=== PATIENT | female | born 1940 | race Caucasian/White ===

== ENCOUNTER 2017-10-23 13:47 | Inpatient (IN) | payer MEDICARE, BC, MEDICAID ==
[2017-10-23 15:30] LABS: ADD MAN DIFF? NO
[2017-10-23 15:33] LABS: WHITE BLOOD COUNT 10.7 10^3/ul (4.8-10.8)
[2017-10-23 15:33] LABS: BASOPHIL # 0.1 10^3/ul (0.0-0.1); BASOPHILS % 0.8 % (0.0-2.0); EOSINOPHILS # 0.2 10^3/ul (0.0-0.5); EOSINOPHILS % 2.2 % (0.0-7.0); HEMATOCRIT 44.2 % (37.0-47.0); HEMOGLOBIN 13.6 g/dl (12.0-16.0); LYMPHOCYTES # 2.4 10^3/ul (0.8-2.9); LYMPHOCYTES % 22.8 % (15.0-51.0); MEAN CORPUSCULAR HEMOGLOBIN 25.8 pg (29.0-33.0); MEAN CORPUSCULAR HGB CONC 30.8 g/dl (32.0-37.0); MEAN CORPUSCULAR VOLUME 83.7 fl (82.0-101.0); MEAN PLATELET VOLUME 10.7 fl (7.4-10.4); MONOCYTE # 0.8 10^3/ul (0.3-0.9); MONOCYTES % 7.7 % (0.0-11.0); NEUTROPHIL # 7.1 10^3/ul (1.6-7.5); NEUTROPHILS % 66.3 % (39.0-77.0); PLATELET COUNT 255 10^3/UL (140-415); RED BLOOD COUNT 5.28 10^6/ul (4.20-5.40); RED CELL DISTRIBUTION WIDTH 14.6 % (11.5-14.5)
[2017-10-23 15:52] LABS: ALANINE AMINOTRANSFERASE 22 IU/L (13-69); ALBUMIN 4.1 g/dl (3.3-4.9); ALBUMIN/GLOBULIN RATIO 1.02; ALKALINE PHOSPHATASE 83 IU/L (42-121); ANION GAP 15 (8-16); ASPARTATE AMINO TRANSFERASE 27 IU/L (15-46); BILIRUBIN,INDIRECT 0.3 mg/dl (0-1.1); BILIRUBIN,TOTAL 0.3 mg/dl (0.2-1.3); BLOOD UREA NITROGEN 23 mg/dl (7-20); CARBON DIOXIDE 28 mmol/L (21-31); CHLORIDE 106 mmol/L (97-110); CREATININE 0.79 mg/dl (0.44-1.00); GLUCOSE 120 mg/dl (70-220); POTASSIUM 4.5 mmol/L (3.5-5.1); SODIUM 144 mmol/L (135-144); TOTAL PROTEIN 8.1 g/dl (6.1-8.1)
[2017-10-23 15:53] LABS: ACETAMINOPHEN < 10.0 ug/ml (10.0-30.0); ETHANOL < 10.0 mg/dl; SALICYLATE < 1.0 mg/dl (5.0-30.0)
[2017-10-23 18:37] LABS: ADD UMIC YES; UR ASCORBIC ACID NEGATIVE (NEGATIVE); UR BILIRUBIN (Dip) NEGATIVE (NEGATIVE); UR BLOOD (Dip) 1+ mg/dL (NEGATIVE); UR CLARITY CLEAR (CLEAR); UR COLOR YELLOW (YELLOW); UR GLUCOSE (Dip) NEGATIVE (NEGATIVE); UR KETONES (Dip) NEGATIVE (NEGATIVE); UR LEUKOCYTE ESTERASE (Dip) 3+ Leu/ul (NEGATIVE); UR NITRITE (Dip) NEGATIVE (NEGATIVE); UR RBC 3 /HPF (0-5); UR SPECIFIC GRAVITY (Dip) 1.014 (1.003-1.030); UR TOTAL PROTEIN (Dip) NEGATIVE (NEGATIVE); UR UROBILINOGEN (Dip) NEGATIVE (NEGATIVE); UR WBC 16 /HPF (0-5)
[2017-10-23 19:10] LABS: AMPHETAMINE/METHAMPHETAMINE Negative (NEGATIVE); BARBITURATES Negative (NEGATIVE); BENZODIAZEPINES Negative (NEGATIVE); CANNABINOIDS Negative (NEGATIVE); COCAINE Negative (NEGATIVE); OPIATES Negative (NEGATIVE)
[2017-10-23] MEDS: CEFTRIAXONE 1 GM/50 ML (PMX) 50 ML IVPB (19:23)
[2017-10-23] MEDS ORDERED: ONDANSETRON 4 MG INJ IV (19:30)
[2017-10-23] MEDS ORDERED: ACETAMINOPHEN 325 MG TAB PO ×2 (19:30→22:00)
[2017-10-23 19:53] LABS: INR 0.93; PROTIME 12.5 Sec (11.9-14.9)
[2017-10-23 19:54] LABS: PARTIAL THROMBOPLASTIN TIME 27.9 Sec (25.0-35.0)
[2017-10-23 20:02] LABS: TROPONIN-I 0.029 ng/ml (0.000-0.120)
[2017-10-23 20:06] LABS: FREE THYROXINE INDEX (Calc) 2.52 ug/ml (0.65-3.89); T3 UPTAKE 33.1 % (23.5-40.5); T4 (THYROXINE) 7.6 ug/dl (5.5-11.0)
[2017-10-23] MEDS ORDERED: GLUCOSE GEL 15 GRAM TUBE PO ×2 (22:00)
[2017-10-23] MEDS ORDERED: GLUCOSE GEL 15 GRAM TUBE BUCCAL (22:00)
[2017-10-23] MEDS ORDERED: GLUCAGON 1 MG INJ IM (22:00)
[2017-10-23] MEDS ORDERED: DEXTROSE 50% 50 ML SYRINGE IV ×2 (22:00)
[2017-10-23] MEDS: INSULIN ASPART [NOVOLOG] 3 ML PEN SC (22:14)
[2017-10-24] MEDS: ACCU-CHEK XX (02:00)
[2017-10-24 05:59] LABS: ADD MAN DIFF? NO
[2017-10-24 06:01] LABS: BASOPHIL # 0.1 10^3/ul (0.0-0.1); BASOPHILS % 0.8 % (0.0-2.0); EOSINOPHILS # 0.3 10^3/ul (0.0-0.5); EOSINOPHILS % 2.5 % (0.0-7.0); HEMOGLOBIN 13.1 g/dl (12.0-16.0); LYMPHOCYTES # 2.5 10^3/ul (0.8-2.9); LYMPHOCYTES % 24.7 % (15.0-51.0); MEAN CORPUSCULAR HEMOGLOBIN 25.4 pg (29.0-33.0); MEAN CORPUSCULAR HGB CONC 31.2 g/dl (32.0-37.0); MEAN CORPUSCULAR VOLUME 81.4 fl (82.0-101.0); MEAN PLATELET VOLUME 11.1 fl (7.4-10.4); MONOCYTE # 0.8 10^3/ul (0.3-0.9); MONOCYTES % 7.6 % (0.0-11.0); NEUTROPHIL # 6.5 10^3/ul (1.6-7.5); NEUTROPHILS % 64.1 % (39.0-77.0); PLATELET COUNT 265 10^3/UL (140-415); RED BLOOD COUNT 5.16 10^6/ul (4.20-5.40); RED CELL DISTRIBUTION WIDTH 14.5 % (11.5-14.5)
[2017-10-24 06:01] LABS: WHITE BLOOD COUNT 10.1 10^3/ul (4.8-10.8)
[2017-10-24 06:27] LABS: ALANINE AMINOTRANSFERASE 31 IU/L (13-69); ALBUMIN 3.7 g/dl (3.3-4.9); ALBUMIN/GLOBULIN RATIO 1.02; ALKALINE PHOSPHATASE 78 IU/L (42-121); ANION GAP 13 (8-16); ASPARTATE AMINO TRANSFERASE 24 IU/L (15-46); BILIRUBIN,INDIRECT 0.3 mg/dl (0-1.1); BILIRUBIN,TOTAL 0.3 mg/dl (0.2-1.3); BLOOD UREA NITROGEN 19 mg/dl (7-20); CALCIUM 9.9 mg/dl (8.4-10.2); CARBON DIOXIDE 27 mmol/L (21-31); CHLORIDE 109 mmol/L (97-110); CHOL/HDL RATIO 6.1 RATIO; CHOLESTEROL 238 mg/dl (100-200); CREATININE 0.74 mg/dl (0.44-1.00); GLUCOSE 118 mg/dl (70-220); HDL CHOLESTEROL 39 mg/dl (33-92); LDL CHOLESTEROL,CALCULATED 152 mg/dl; POTASSIUM 4.4 mmol/L (3.5-5.1); SODIUM 145 mmol/L (135-144); TOTAL PROTEIN 7.3 g/dl (6.1-8.1); TRIGLYCERIDES 237 mg/dl (0-149)
[2017-10-24] MEDS: INSULIN ASPART [NOVOLOG] 3 ML PEN SC ×4 (08:15→21:00)
[2017-10-24] MEDS: ASPIRIN (EC) 81 MG TAB PO (08:22)
[2017-10-24] MEDS: METOPROLOL (XL) 25 MG TAB PO (08:23)
[2017-10-24] MEDS: ENOXAPARIN 40 MG/0.4 ML SYG SC (08:24)
[2017-10-24 09:54] LABS: HEMOGLOBIN A1C 6.3 % (0-5.9)
[2017-10-24] MEDS: CITALOPRAM 20 MG TAB NGT (15:00)
[2017-10-24] MEDS: CEFTRIAXONE 2 GM/50 ML (PMX) 50 ML IVPB (18:54)
[2017-10-25] MEDS: ACCU-CHEK XX (02:00)
[2017-10-25 06:24] LABS: ADD MAN DIFF? NO
[2017-10-25 06:35] LABS: BASOPHIL # 0.1 10^3/ul (0.0-0.1); BASOPHILS % 0.6 % (0.0-2.0); EOSINOPHILS # 0.2 10^3/ul (0.0-0.5); EOSINOPHILS % 1.7 % (0.0-7.0); HEMATOCRIT 42.6 % (37.0-47.0); HEMOGLOBIN 13.4 g/dl (12.0-16.0); LYMPHOCYTES # 2.2 10^3/ul (0.8-2.9); MEAN CORPUSCULAR HEMOGLOBIN 25.6 pg (29.0-33.0); MEAN CORPUSCULAR HGB CONC 31.5 g/dl (32.0-37.0); MEAN CORPUSCULAR VOLUME 81.3 fl (82.0-101.0); MONOCYTE # 0.7 10^3/ul (0.3-0.9); MONOCYTES % 6.5 % (0.0-11.0); NEUTROPHIL # 7.8 10^3/ul (1.6-7.5); NEUTROPHILS % 70.9 % (39.0-77.0); PLATELET COUNT 284 10^3/UL (140-415); RED BLOOD COUNT 5.24 10^6/ul (4.20-5.40); RED CELL DISTRIBUTION WIDTH 14.5 % (11.5-14.5)
[2017-10-25 06:48] LABS: ANION GAP 14 (8-16); BLOOD UREA NITROGEN 16 mg/dl (7-20); CALCIUM 9.5 mg/dl (8.4-10.2); CARBON DIOXIDE 27 mmol/L (21-31); CHLORIDE 107 mmol/L (97-110); CREATININE 0.77 mg/dl (0.44-1.00); GLUCOSE 106 mg/dl (70-220); POTASSIUM 4.4 mmol/L (3.5-5.1); SODIUM 144 mmol/L (135-144)
[2017-10-25] MEDS: INSULIN ASPART [NOVOLOG] 3 ML PEN SC ×4 (08:12→20:36)
[2017-10-25] MEDS: ASPIRIN (EC) 81 MG TAB PO (09:08)
[2017-10-25] MEDS: CITALOPRAM 20 MG TAB NGT (09:08)
[2017-10-25] MEDS: METOPROLOL (XL) 25 MG TAB PO (09:08)
[2017-10-25] MEDS: ENOXAPARIN 40 MG/0.4 ML SYG SC (09:09)
[2017-10-25 12:22] LABS: CHOL/HDL RATIO 5.9 RATIO; HDL CHOLESTEROL 41 mg/dl (33-92); LDL CHOLESTEROL,CALCULATED 160 mg/dl; TRIGLYCERIDES 214 mg/dl (0-149)
[2017-10-25 12:22] LABS: CHOLESTEROL 244 mg/dl (100-200)
[2017-10-25 14:14] LABS: B-TYPE NATRIURETIC PEPTIDE 1980 PG/ML (0-450)
[2017-10-25 16:52] LABS: ADD UMIC YES; UR ASCORBIC ACID NEGATIVE (NEGATIVE); UR BACTERIA MODERATE /HPF (NONE SEEN); UR BILIRUBIN (Dip) NEGATIVE (NEGATIVE); UR BLOOD (Dip) 2+ mg/dL (NEGATIVE); UR CLARITY CLOUDY (CLEAR); UR COLOR YELLOW (YELLOW); UR GLUCOSE (Dip) NEGATIVE (NEGATIVE); UR KETONES (Dip) NEGATIVE (NEGATIVE); UR LEUKOCYTE ESTERASE (Dip) 3+ Leu/ul (NEGATIVE); UR NITRITE (Dip) NEGATIVE (NEGATIVE); UR RBC 42 /HPF (0-5); UR SPECIFIC GRAVITY (Dip) 1.013 (1.003-1.030); UR SQUAMOUS EPITHELIAL CELL FEW /HPF (FEW); UR TOTAL PROTEIN (Dip) NEGATIVE (NEGATIVE); UR UROBILINOGEN (Dip) NEGATIVE (NEGATIVE); UR WBC > 182 /HPF (0-5)
[2017-10-25] MEDS: CEFTRIAXONE 2 GM/50 ML (PMX) 50 ML IVPB (17:07)
[2017-10-25] MEDS: ATORVASTATIN 40 MG TAB PO (20:32)
[2017-10-26] MEDS: ACCU-CHEK XX (02:00)
[2017-10-26 06:08] LABS: ADD MAN DIFF? NO
[2017-10-26 06:10] LABS: BASOPHIL # 0.1 10^3/ul (0.0-0.1); BASOPHILS % 1.1 % (0.0-2.0); EOSINOPHILS # 0.2 10^3/ul (0.0-0.5); EOSINOPHILS % 2.4 % (0.0-7.0); HEMATOCRIT 41.7 % (37.0-47.0); LYMPHOCYTES # 2.5 10^3/ul (0.8-2.9); LYMPHOCYTES % 26.7 % (15.0-51.0); MEAN CORPUSCULAR HEMOGLOBIN 25.3 pg (29.0-33.0); MEAN CORPUSCULAR HGB CONC 31.2 g/dl (32.0-37.0); MEAN CORPUSCULAR VOLUME 81.3 fl (82.0-101.0); MEAN PLATELET VOLUME 11.2 fl (7.4-10.4); MONOCYTE # 0.8 10^3/ul (0.3-0.9); MONOCYTES % 8.3 % (0.0-11.0); NEUTROPHIL # 5.7 10^3/ul (1.6-7.5); NEUTROPHILS % 61.3 % (39.0-77.0); PLATELET COUNT 257 10^3/UL (140-415); RED BLOOD COUNT 5.13 10^6/ul (4.20-5.40); RED CELL DISTRIBUTION WIDTH 14.4 % (11.5-14.5)
[2017-10-26 06:10] LABS: WHITE BLOOD COUNT 9.3 10^3/ul (4.8-10.8)
[2017-10-26 06:30] LABS: ANION GAP 10 (8-16); BLOOD UREA NITROGEN 19 mg/dl (7-20); CALCIUM 9.6 mg/dl (8.4-10.2); CARBON DIOXIDE 29 mmol/L (21-31); CHLORIDE 109 mmol/L (97-110); CREATININE 0.73 mg/dl (0.44-1.00); GLUCOSE 93 mg/dl (70-220); POTASSIUM 4.6 mmol/L (3.5-5.1); SODIUM 143 mmol/L (135-144)
[2017-10-26 06:43] LABS: TROPONIN-I 0.039 ng/ml (0.000-0.120)
[2017-10-26] MEDS: INSULIN ASPART [NOVOLOG] 3 ML PEN SC ×3 (08:15→17:56)
[2017-10-26] MEDS: ENOXAPARIN 40 MG/0.4 ML SYG SC (08:28)
[2017-10-26] MEDS: METOPROLOL (XL) 25 MG TAB PO (08:29)
[2017-10-26] MEDS: CITALOPRAM 20 MG TAB NGT (08:29)
[2017-10-26] MEDS: ASPIRIN (EC) 81 MG TAB PO (08:29)
[2017-10-26 15:54] LABS: TROPONIN-I 0.025 ng/ml (0.000-0.120)
[2017-10-26] MEDS: CEFTRIAXONE 2 GM/50 ML (PMX) 50 ML IVPB (17:22)
[2017-10-27] MEDS ORDERED: BENAZEPRIL 10 MG TAB PO (09:00)
== END 2017-10-26 20:20 | DRG 70 ==
LOC: E/R 13:47 → MS2 19:30
DX: G93.89 Other specified disorders of brain (principal); G93.40 Encephalopathy, unspecified; G91.2 (Idiopathic) normal pressure hydrocephalus; N39.0 Urinary tract infection, site not specified; G30.9 Alzheimer's disease, unspecified; F02.80 Dementia in other diseases classified elsewhere, unspecified severity, without behavioral disturbance, psychotic disturbance, mood disturbance, and anxiety; E11.9 Type 2 diabetes mellitus without complications; I10 Essential (primary) hypertension; E78.5 Hyperlipidemia, unspecified; F32.9 Major depressive disorder, single episode, unspecified; G31.84 Mild cognitive impairment of uncertain or unknown etiology; I35.0 Nonrheumatic aortic (valve) stenosis; Z66 Do not resuscitate
CPT/HCPCS: 70450; 70551; 71045; 80048; 80053; 80061; 80307; 81001; 82962; 83036; 83880; 84436; 84443; 84479; 84484; 85025; 85610; 85730; 87086; 93005; 93306; 96374; 99217; 99285-25

== ENCOUNTER 2017-12-05 23:37 | Inpatient (IN) | payer MEDICARE, BC, MEDICAID ==
[2017-12-06 00:23] LABS: ADD MAN DIFF? NO
[2017-12-06 00:26] LABS: URINE BLOOD (Dip) POC 2+ (NEGATIVE); URINE GLUCOSE (Dip) POC Negative (NEGATIVE); URINE KETONES (Dip) POC Negative (NEGATIVE); URINE LEUKOCYTE EST (Dip) POC 3+ (NEGATIVE); URINE NITRITE (Dip) POC Positive (NEGATIVE); URINE TOTAL PROTEIN POC 1+ (NEGATIVE)
[2017-12-06 00:27] LABS: BASOPHIL # 0.1 10^3/ul (0.0-0.1); BASOPHILS % 0.5 % (0.0-2.0); EOSINOPHILS # 0.2 10^3/ul (0.0-0.5); EOSINOPHILS % 2.1 % (0.0-7.0); HEMATOCRIT 40.7 % (37.0-47.0); HEMOGLOBIN 12.8 g/dl (12.0-16.0); LYMPHOCYTES # 2.3 10^3/ul (0.8-2.9); LYMPHOCYTES % 19.7 % (15.0-51.0); MEAN CORPUSCULAR HEMOGLOBIN 25.9 pg (29.0-33.0); MEAN CORPUSCULAR HGB CONC 31.4 g/dl (32.0-37.0); MEAN CORPUSCULAR VOLUME 82.4 fl (82.0-101.0); MEAN PLATELET VOLUME 11.5 fl (7.4-10.4); MONOCYTE # 0.8 10^3/ul (0.3-0.9); MONOCYTES % 6.9 % (0.0-11.0); NEUTROPHIL # 8.1 10^3/ul (1.6-7.5); NEUTROPHILS % 70.5 % (39.0-77.0); PLATELET COUNT 271 10^3/UL (140-415); RED BLOOD COUNT 4.94 10^6/ul (4.20-5.40); RED CELL DISTRIBUTION WIDTH 14.6 % (11.5-14.5)
[2017-12-06 00:27] LABS: WHITE BLOOD COUNT 11.5 10^3/ul (4.8-10.8)
[2017-12-06 00:47] LABS: ALANINE AMINOTRANSFERASE 33 IU/L (13-69); ALBUMIN/GLOBULIN RATIO 1.17; ALKALINE PHOSPHATASE 76 IU/L (42-121); ANION GAP 10 (8-16); ASPARTATE AMINO TRANSFERASE 32 IU/L (15-46); BILIRUBIN,INDIRECT 0.3 mg/dl (0-1.1); BILIRUBIN,TOTAL 0.3 mg/dl (0.2-1.3); BLOOD UREA NITROGEN 28 mg/dl (7-20); CALCIUM 9.6 mg/dl (8.4-10.2); CARBON DIOXIDE 27 mmol/L (21-31); CHLORIDE 111 mmol/L (97-110); GLUCOSE 125 mg/dl (70-220); LIPASE 519 U/L (23-300); POTASSIUM 4.5 mmol/L (3.5-5.1); SODIUM 143 mmol/L (135-144); TOTAL PROTEIN 7.4 g/dl (6.1-8.1)
[2017-12-06] MEDS: SOD CHLORIDE 0.9% 500 ML IV (04:36)
[2017-12-06] MEDS: PIPER-TAZO 3.375 GM IV (PMX) 100 ML IVPB (04:36)
[2017-12-06] MEDS ORDERED: ONDANSETRON 4 MG INJ IV (12:00)
[2017-12-06] MEDS ORDERED: GLUCOSE GEL 15 GRAM TUBE BUCCAL (12:30)
[2017-12-06] MEDS ORDERED: DEXTROSE 50% 50 ML SYRINGE IV ×2 (12:30)
[2017-12-06] MEDS ORDERED: GLUCAGON 1 MG INJ IM (12:30)
[2017-12-06] MEDS: PANTOPRAZOLE 40 MG INJ IV (12:30)
[2017-12-06] MEDS ORDERED: GLUCOSE GEL 15 GRAM TUBE PO ×2 (12:30)
[2017-12-06] MEDS ORDERED: METOCLOPRAMIDE 10 MG INJ IV (12:30)
[2017-12-06] MEDS: INSULIN ASPART [NOVOLOG] 3 ML PEN SC ×3 (12:50→21:00)
[2017-12-06] MEDS: CEFTRIAXONE 1 GM/50 ML (PMX) 50 ML IVPB (13:30)
[2017-12-06 14:56] LABS: LIPASE 374 U/L (23-300)
[2017-12-06 14:56] LABS: ALANINE AMINOTRANSFERASE 31 IU/L (13-69); ALBUMIN 3.5 g/dl (3.3-4.9); ALKALINE PHOSPHATASE 67 IU/L (42-121); ASPARTATE AMINO TRANSFERASE 35 IU/L (15-46); BILIRUBIN,INDIRECT 0.3 mg/dl (0-1.1); BILIRUBIN,TOTAL 0.3 mg/dl (0.2-1.3); TOTAL PROTEIN 6.8 g/dl (6.1-8.1)
[2017-12-06] MEDS: SOD CHLORIDE 0.9% 1,000 ML IV (15:59)
[2017-12-06] MEDS ORDERED: ACETAMINOPHEN 325 MG TAB PO (17:00)
[2017-12-06] MEDS: ATORVASTATIN 40 MG TAB PO (20:23)
[2017-12-06] MEDS: DOCUSATE SODIUM 100 MG CAP PO (20:23)
[2017-12-06] MEDS: MEMANTINE 10 MG TAB PO (20:23)
[2017-12-07] MEDS: PANTOPRAZOLE 40 MG INJ IV (05:47)
[2017-12-07 05:50] LABS: ADD MAN DIFF? NO; BASOPHIL # 0.1 10^3/ul (0.0-0.1); BASOPHILS % 0.9 % (0.0-2.0); EOSINOPHILS # 0.2 10^3/ul (0.0-0.5); EOSINOPHILS % 2.2 % (0.0-7.0); HEMATOCRIT 39.8 % (37.0-47.0); HEMOGLOBIN 12.2 g/dl (12.0-16.0); LYMPHOCYTES # 2.4 10^3/ul (0.8-2.9); LYMPHOCYTES % 30.4 % (15.0-51.0); MEAN CORPUSCULAR HEMOGLOBIN 25.6 pg (29.0-33.0); MEAN CORPUSCULAR HGB CONC 30.7 g/dl (32.0-37.0); MEAN CORPUSCULAR VOLUME 83.6 fl (82.0-101.0); MEAN PLATELET VOLUME 11.4 fl (7.4-10.4); MONOCYTE # 0.7 10^3/ul (0.3-0.9); MONOCYTES % 8.9 % (0.0-11.0); NEUTROPHIL # 4.5 10^3/ul (1.6-7.5); NEUTROPHILS % 57.3 % (39.0-77.0); PLATELET COUNT 239 10^3/UL (140-415); RED BLOOD COUNT 4.76 10^6/ul (4.20-5.40); RED CELL DISTRIBUTION WIDTH 14.7 % (11.5-14.5)
[2017-12-07 05:50] LABS: WHITE BLOOD COUNT 7.8 10^3/ul (4.8-10.8)
[2017-12-07 06:32] LABS: ANION GAP 7 (8-16); BLOOD UREA NITROGEN 21 mg/dl (7-20); CARBON DIOXIDE 27 mmol/L (21-31); CHLORIDE 114 mmol/L (97-110); CREATININE 0.82 mg/dl (0.44-1.00); GLUCOSE 84 mg/dl (70-220); POTASSIUM 4.2 mmol/L (3.5-5.1); SODIUM 144 mmol/L (135-144)
[2017-12-07] MEDS: INSULIN ASPART [NOVOLOG] 3 ML PEN SC ×4 (08:10→20:58)
[2017-12-07 08:15] LABS: HEMOGLOBIN A1C 6.1 % (0-5.9)
[2017-12-07] MEDS: SOD CHLORIDE 0.9% 1,000 ML IV (09:05)
[2017-12-07] MEDS: CALCIUM CARBONATE 1.25 GM TAB PO (09:58)
[2017-12-07] MEDS: MEMANTINE 10 MG TAB PO ×2 (09:58→20:53)
[2017-12-07] MEDS: DOCUSATE SODIUM 100 MG CAP PO ×2 (09:58→20:53)
[2017-12-07] MEDS: CITALOPRAM 20 MG TAB PO (09:58)
[2017-12-07] MEDS: BENAZEPRIL 10 MG TAB PO ×2 (09:59→21:57)
[2017-12-07] MEDS: METOPROLOL 25 MG TAB PO (10:00)
[2017-12-07] MEDS: CEFTRIAXONE 1 GM/50 ML (PMX) 50 ML IVPB (12:24)
[2017-12-07] MEDS: ATORVASTATIN 40 MG TAB PO (20:53)
[2017-12-08] MEDS: SOD CHLORIDE 0.9% 1,000 ML IV ×2 (02:22→17:45)
[2017-12-08] MEDS: PANTOPRAZOLE 40 MG INJ IV (05:17)
[2017-12-08 05:46] LABS: ADD MAN DIFF? NO
[2017-12-08 06:08] LABS: WHITE BLOOD COUNT 8.4 10^3/ul (4.8-10.8)
[2017-12-08 06:08] LABS: BASOPHIL # 0.1 10^3/ul (0.0-0.1); BASOPHILS % 0.7 % (0.0-2.0); EOSINOPHILS # 0.2 10^3/ul (0.0-0.5); EOSINOPHILS % 2.4 % (0.0-7.0); HEMATOCRIT 35.4 % (37.0-47.0); HEMOGLOBIN 11.1 g/dl (12.0-16.0); LYMPHOCYTES # 2.7 10^3/ul (0.8-2.9); LYMPHOCYTES % 32.8 % (15.0-51.0); MEAN CORPUSCULAR HEMOGLOBIN 25.9 pg (29.0-33.0); MEAN CORPUSCULAR HGB CONC 31.4 g/dl (32.0-37.0); MEAN CORPUSCULAR VOLUME 82.7 fl (82.0-101.0); MEAN PLATELET VOLUME 11.4 fl (7.4-10.4); MONOCYTE # 0.7 10^3/ul (0.3-0.9); MONOCYTES % 8.7 % (0.0-11.0); NEUTROPHIL # 4.6 10^3/ul (1.6-7.5); NEUTROPHILS % 55.2 % (39.0-77.0); PLATELET COUNT 222 10^3/UL (140-415); RED BLOOD COUNT 4.28 10^6/ul (4.20-5.40); RED CELL DISTRIBUTION WIDTH 14.5 % (11.5-14.5)
[2017-12-08 06:45] LABS: ANION GAP 11 (8-16); BLOOD UREA NITROGEN 13 mg/dl (7-20); CALCIUM 8.5 mg/dl (8.4-10.2); CARBON DIOXIDE 24 mmol/L (21-31); CHLORIDE 111 mmol/L (97-110); CREATININE 0.73 mg/dl (0.44-1.00); GLUCOSE 85 mg/dl (70-220); POTASSIUM 3.7 mmol/L (3.5-5.1); SODIUM 142 mmol/L (135-144)
[2017-12-08] MEDS: INSULIN ASPART [NOVOLOG] 3 ML PEN SC ×4 (08:00→20:21)
[2017-12-08] MEDS: DOCUSATE SODIUM 100 MG CAP PO ×2 (08:11→20:20)
[2017-12-08] MEDS: CITALOPRAM 20 MG TAB PO (08:12)
[2017-12-08] MEDS: BENAZEPRIL 10 MG TAB PO ×2 (08:12→20:21)
[2017-12-08] MEDS: MEMANTINE 10 MG TAB PO ×2 (08:12→20:20)
[2017-12-08] MEDS: CALCIUM CARBONATE 1.25 GM TAB PO (08:12)
[2017-12-08] MEDS: METOPROLOL 25 MG TAB PO (08:13)
[2017-12-08] MEDS: CEFTRIAXONE 1 GM/50 ML (PMX) 50 ML IVPB (12:20)
[2017-12-08] MEDS: ATORVASTATIN 40 MG TAB PO (20:20)
[2017-12-08] MEDS: hydrALAzine 20 MG INJ IV (22:38)
[2017-12-09] MEDS: PANTOPRAZOLE 40 MG INJ IV (05:29)
[2017-12-09] MEDS: hydrALAzine 20 MG INJ IV (05:33)
[2017-12-09] MEDS: INSULIN ASPART [NOVOLOG] 3 ML PEN SC ×4 (08:00→21:00)
[2017-12-09] MEDS: DOCUSATE SODIUM 100 MG CAP PO (09:00)
[2017-12-09] MEDS: SOD CHLORIDE 0.9% 1,000 ML IV ×2 (09:18→23:20)
[2017-12-09] MEDS: BENAZEPRIL 20 MG TAB PO ×2 (09:23→20:50)
[2017-12-09] MEDS: CITALOPRAM 20 MG TAB PO (09:24)
[2017-12-09] MEDS: ASPIRIN 81 MG TAB PO (09:24)
[2017-12-09] MEDS: MEMANTINE 10 MG TAB PO ×2 (09:24→20:49)
[2017-12-09] MEDS: METOPROLOL 25 MG TAB PO (09:24)
[2017-12-09] MEDS: CALCIUM CARBONATE 1.25 GM TAB PO (09:24)
[2017-12-09] MEDS: CEFTRIAXONE 1 GM/50 ML (PMX) 50 ML IVPB (12:04)
[2017-12-09] MEDS: SENNA TAB PO ×2 (12:05→20:49)
[2017-12-09] MEDS: ATORVASTATIN 40 MG TAB PO (20:49)
[2017-12-10] MEDS: SOD CHLORIDE 0.9% 1,000 ML IV ×2 (02:55→20:58)
[2017-12-10] MEDS: hydrALAzine 20 MG INJ IV (03:47)
[2017-12-10] MEDS: PANTOPRAZOLE 40 MG INJ IV (05:05)
[2017-12-10] MEDS: INSULIN ASPART [NOVOLOG] 3 ML PEN SC ×4 (07:58→21:00)
[2017-12-10] MEDS: SENNA TAB PO ×2 (09:04→20:48)
[2017-12-10] MEDS: CALCIUM CARBONATE 1.25 GM TAB PO (09:05)
[2017-12-10] MEDS: ASPIRIN 81 MG TAB PO (09:05)
[2017-12-10] MEDS: MEMANTINE 10 MG TAB PO ×2 (09:05→20:48)
[2017-12-10] MEDS: BENAZEPRIL 20 MG TAB PO ×2 (09:05→20:49)
[2017-12-10] MEDS: CITALOPRAM 20 MG TAB PO (09:05)
[2017-12-10] MEDS: METOPROLOL 25 MG TAB PO ×2 (09:06→20:48)
[2017-12-10] MEDS: CEFTRIAXONE 1 GM/50 ML (PMX) 50 ML IVPB (12:21)
[2017-12-10] MEDS: ATORVASTATIN 40 MG TAB PO (20:48)
[2017-12-11] MEDS: PANTOPRAZOLE 40 MG INJ IV ×2 (06:22→17:16)
[2017-12-11] MEDS: INSULIN ASPART [NOVOLOG] 3 ML PEN SC ×4 (07:51→20:16)
[2017-12-11] MEDS: MEMANTINE 10 MG TAB PO ×3 (08:56→20:05)
[2017-12-11] MEDS: ASPIRIN 81 MG TAB PO ×2 (08:56→09:00)
[2017-12-11] MEDS: CALCIUM CARBONATE 1.25 GM TAB PO ×2 (08:56→09:00)
[2017-12-11] MEDS: CITALOPRAM 20 MG TAB PO ×2 (08:57→09:00)
[2017-12-11] MEDS: SENNA TAB PO ×2 (08:57→09:00)
[2017-12-11] MEDS: BENAZEPRIL 20 MG TAB PO ×3 (09:00→20:07)
[2017-12-11] MEDS: METOPROLOL 25 MG TAB PO ×3 (09:00→20:06)
[2017-12-11] MEDS: hydrALAzine 20 MG INJ IV (09:10)
[2017-12-11 11:15] LABS: ADD MAN DIFF? NO
[2017-12-11 11:24] LABS: BASOPHIL # 0.1 10^3/ul (0.0-0.1); BASOPHILS % 0.6 % (0.0-2.0); EOSINOPHILS # 0.1 10^3/ul (0.0-0.5); EOSINOPHILS % 1.2 % (0.0-7.0); HEMATOCRIT 45.4 % (37.0-47.0); HEMOGLOBIN 14.3 g/dl (12.0-16.0); LYMPHOCYTES # 1.8 10^3/ul (0.8-2.9); MEAN CORPUSCULAR HEMOGLOBIN 25.9 pg (29.0-33.0); MEAN CORPUSCULAR HGB CONC 31.5 g/dl (32.0-37.0); MEAN CORPUSCULAR VOLUME 82.1 fl (82.0-101.0); MEAN PLATELET VOLUME 10.6 fl (7.4-10.4); MONOCYTE # 0.8 10^3/ul (0.3-0.9); MONOCYTES % 7.4 % (0.0-11.0); NEUTROPHIL # 8.4 10^3/ul (1.6-7.5); NEUTROPHILS % 74.4 % (39.0-77.0); PLATELET COUNT 236 10^3/UL (140-415); RED BLOOD COUNT 5.53 10^6/ul (4.20-5.40); RED CELL DISTRIBUTION WIDTH 14.8 % (11.5-14.5)
[2017-12-11 11:24] LABS: WHITE BLOOD COUNT 11.3 10^3/ul (4.8-10.8)
[2017-12-11] MEDS: METOCLOPRAMIDE 10 MG INJ IV ×2 (11:35→17:17)
[2017-12-11] MEDS: LUBIPROSTONE 24 MCG CAP PO ×2 (11:35→20:07)
[2017-12-11 11:52] LABS: LIPASE 36 U/L (23-300)
[2017-12-11 11:52] LABS: AMYLASE 39 U/L (11-123)
[2017-12-11 11:55] LABS: TRIGLYCERIDES 128 mg/dl (0-149)
[2017-12-11 11:56] LABS: ALANINE AMINOTRANSFERASE 30 IU/L (13-69); ALBUMIN 3.8 g/dl (3.3-4.9); ALBUMIN/GLOBULIN RATIO 1.18; ALKALINE PHOSPHATASE 80 IU/L (42-121); ANION GAP 10 (8-16); ASPARTATE AMINO TRANSFERASE 53 IU/L (15-46); BILIRUBIN,INDIRECT 0.6 mg/dl (0-1.1); BILIRUBIN,TOTAL 0.6 mg/dl (0.2-1.3); BLOOD UREA NITROGEN 8 mg/dl (7-20); CARBON DIOXIDE 21 mmol/L (21-31); CHLORIDE 114 mmol/L (97-110); CREATININE 0.68 mg/dl (0.44-1.00); GLUCOSE 90 mg/dl (70-220); POTASSIUM 3.4 mmol/L (3.5-5.1); SODIUM 142 mmol/L (135-144)
[2017-12-11] MEDS: SOD CHLORIDE 0.9% 1,000 ML IV (16:12)
[2017-12-11] MEDS: POTASSIUM CHLORIDE (SR) 20 MEQ TAB PO (17:17)
[2017-12-11] MEDS: ATORVASTATIN 40 MG TAB PO (20:20)
[2017-12-12] MEDS: METOCLOPRAMIDE 10 MG INJ IV ×4 (00:15→17:37)
[2017-12-12] MEDS: hydrALAzine 20 MG INJ IV (02:56)
[2017-12-12] MEDS: PANTOPRAZOLE 40 MG INJ IV ×3 (05:30→17:35)
[2017-12-12 05:39] LABS: ADD MAN DIFF? NO
[2017-12-12 05:48] LABS: BASOPHIL # 0.1 10^3/ul (0.0-0.1); BASOPHILS % 0.8 % (0.0-2.0); EOSINOPHILS # 0.2 10^3/ul (0.0-0.5); EOSINOPHILS % 2.3 % (0.0-7.0); HEMATOCRIT 40.3 % (37.0-47.0); HEMOGLOBIN 12.9 g/dl (12.0-16.0); LYMPHOCYTES # 2.2 10^3/ul (0.8-2.9); LYMPHOCYTES % 20.7 % (15.0-51.0); MEAN CORPUSCULAR HEMOGLOBIN 26.2 pg (29.0-33.0); MEAN CORPUSCULAR VOLUME 81.9 fl (82.0-101.0); MEAN PLATELET VOLUME 11.7 fl (7.4-10.4); MONOCYTE # 0.9 10^3/ul (0.3-0.9); MONOCYTES % 8.9 % (0.0-11.0); NEUTROPHIL # 7.1 10^3/ul (1.6-7.5); PLATELET COUNT 274 10^3/UL (140-415); RED BLOOD COUNT 4.92 10^6/ul (4.20-5.40)
[2017-12-12 05:48] LABS: WHITE BLOOD COUNT 10.6 10^3/ul (4.8-10.8)
[2017-12-12 06:15] LABS: ALANINE AMINOTRANSFERASE 36 IU/L (13-69); ALBUMIN 3.3 g/dl (3.3-4.9); ALBUMIN/GLOBULIN RATIO 1.03; ALKALINE PHOSPHATASE 60 IU/L (42-121); ANION GAP 11 (8-16); ASPARTATE AMINO TRANSFERASE 40 IU/L (15-46); BILIRUBIN,INDIRECT 0.7 mg/dl (0-1.1); BILIRUBIN,TOTAL 0.7 mg/dl (0.2-1.3); BLOOD UREA NITROGEN 9 mg/dl (7-20); CALCIUM 8.8 mg/dl (8.4-10.2); CARBON DIOXIDE 21 mmol/L (21-31); CHLORIDE 112 mmol/L (97-110); CREATININE 0.74 mg/dl (0.44-1.00); GLUCOSE 91 mg/dl (70-220); POTASSIUM 3.7 mmol/L (3.5-5.1); SODIUM 140 mmol/L (135-144); TOTAL PROTEIN 6.5 g/dl (6.1-8.1)
[2017-12-12] MEDS: INSULIN ASPART [NOVOLOG] 3 ML PEN SC ×4 (08:00→20:22)
[2017-12-12] MEDS: CALCIUM CARBONATE 1.25 GM TAB PO (09:54)
[2017-12-12] MEDS: CITALOPRAM 20 MG TAB PO (09:54)
[2017-12-12] MEDS: MEMANTINE 10 MG TAB PO ×2 (09:55→20:17)
[2017-12-12] MEDS: ASPIRIN 81 MG TAB PO (09:55)
[2017-12-12] MEDS: BENAZEPRIL 20 MG TAB PO ×2 (09:55→20:18)
[2017-12-12] MEDS: LUBIPROSTONE 24 MCG CAP PO ×2 (09:55→20:17)
[2017-12-12] MEDS: METOPROLOL 25 MG TAB PO ×2 (09:55→20:18)
[2017-12-12] MEDS: SOD CHLORIDE 0.9% 1,000 ML IV (10:17)
[2017-12-12] MEDS: ATORVASTATIN 40 MG TAB PO (20:17)
[2017-12-13] MEDS: METOCLOPRAMIDE 10 MG INJ IV ×4 (00:06→17:31)
[2017-12-13] MEDS: SOD CHLORIDE 0.9% 1,000 ML IV (05:23)
[2017-12-13] MEDS: PANTOPRAZOLE 40 MG INJ IV ×2 (05:23→17:31)
[2017-12-13] MEDS: INSULIN ASPART [NOVOLOG] 3 ML PEN SC ×4 (07:58→21:16)
[2017-12-13] MEDS: BENAZEPRIL 20 MG TAB PO ×2 (09:03→21:14)
[2017-12-13] MEDS: CITALOPRAM 20 MG TAB PO (09:03)
[2017-12-13] MEDS: LUBIPROSTONE 24 MCG CAP PO (09:03)
[2017-12-13] MEDS: CALCIUM CARBONATE 1.25 GM TAB PO (09:04)
[2017-12-13] MEDS: METOPROLOL 25 MG TAB PO ×2 (09:04→21:13)
[2017-12-13] MEDS: ASPIRIN 81 MG TAB PO (09:04)
[2017-12-13] MEDS: MEMANTINE 10 MG TAB PO ×2 (09:04→21:14)
[2017-12-13] MEDS: hydrALAzine 20 MG INJ IV (19:35)
[2017-12-13] MEDS ORDERED: ALBUTEROL 0.083% (NEB) 2.5 MG/3 ML AMP HHN (20:00)
[2017-12-13] MEDS: ALBUTEROL 0.083% (NEB) 2.5 MG/3 ML AMP HHN (20:19)
[2017-12-13] MEDS: ATORVASTATIN 40 MG TAB PO (21:13)
[2017-12-14] MEDS: METOCLOPRAMIDE 10 MG INJ IV ×4 (00:13→17:23)
[2017-12-14] MEDS: SOD CHLORIDE 0.9% 1,000 ML IV (03:47)
[2017-12-14] MEDS: PANTOPRAZOLE 40 MG INJ IV ×2 (05:33→17:23)
[2017-12-14] MEDS: INSULIN ASPART [NOVOLOG] 3 ML PEN SC ×4 (08:00→22:34)
[2017-12-14] MEDS: ASPIRIN 81 MG TAB PO (08:14)
[2017-12-14] MEDS: CALCIUM CARBONATE 1.25 GM TAB PO (08:14)
[2017-12-14] MEDS: MEMANTINE 10 MG TAB PO ×2 (08:14→21:00)
[2017-12-14] MEDS: CITALOPRAM 20 MG TAB PO (08:14)
[2017-12-14] MEDS: BENAZEPRIL 20 MG TAB PO (08:15)
[2017-12-14] MEDS: METOPROLOL 25 MG TAB PO ×2 (08:16→21:00)
[2017-12-14] MEDS: hydrALAzine 20 MG INJ IV (19:44)
[2017-12-14] MEDS: FUROSEMIDE 20 MG INJ IV (20:18)
[2017-12-14] MEDS: ALBUTEROL 0.083% (NEB) 2.5 MG/3 ML AMP HHN (20:37)
[2017-12-14] MEDS: ATORVASTATIN 40 MG TAB PO (21:00)
== END 2017-12-15 00:01 | disposition expired | DRG 689 ==
LOC: E/R 23:37 → PP2 12-06 04:37
DX: N39.0 Urinary tract infection, site not specified (principal); K85.90 Acute pancreatitis without necrosis or infection, unspecified; J96.01 Acute respiratory failure with hypoxia; I50.32 Chronic diastolic (congestive) heart failure; Z66 Do not resuscitate; Z51.5 Encounter for palliative care; E11.9 Type 2 diabetes mellitus without complications; Z86.73 Personal history of transient ischemic attack (TIA), and cerebral infarction without residual deficits; F32.9 Major depressive disorder, single episode, unspecified; G43.909 Migraine, unspecified, not intractable, without status migrainosus; I25.10 Atherosclerotic heart disease of native coronary artery without angina pectoris; I35.0 Nonrheumatic aortic (valve) stenosis; Z88.8 Allergy status to other drugs, medicaments and biological substances; Z98.61 Coronary angioplasty status; I11.0 Hypertensive heart disease with heart failure; E78.00 Pure hypercholesterolemia, unspecified; K82.8 Other specified diseases of gallbladder; K59.00 Constipation, unspecified; F01.50 Vascular dementia, unspecified severity, without behavioral disturbance, psychotic disturbance, mood disturbance, and anxiety; Z87.891 Personal history of nicotine dependence
CPT/HCPCS: 36415; 71045; 76700; 80048; 80053; 80076; 81003; 82150; 82962; 83036; 83690; 84478; 85025; 87081; 87086; 93005; 94640; 94664; 96374; 97110; 97161; 97530; 99285-25; G0378